=== PATIENT | male | born 1960 | race Caucasian/White ===

== ENCOUNTER 2021-06-19 02:42 | Inpatient (IN) | payer OTHER ==
[~2021-06-19] VITALS: Ht 180.3 cm; Wt 92.1 kg
[2021-06-19 09:15] VITALS: BP 154/89
[2021-06-19 10:27] VITALS: BP 149/85
[2021-06-19] MEDS ORDERED: PLEASE ENTER HEIGHT AND WEIGHT MC SCH (10:30)
[2021-06-19] MEDS: HEPARIN 25,000 UNITS/250ML PMX 250 ML IV PRN (11:03)
[2021-06-19] MEDS ORDERED: ONDANSETRON 2MG/ML, 2ML IVPush PRN (12:00)
[2021-06-19] MEDS ORDERED: BISACODYL 10 MG SUPP PR PRN (12:00)
[2021-06-19] MEDS ORDERED: hydrALAzine 20 MG/ML, 1ML IVPush PRN (12:00)
[2021-06-19] MEDS ORDERED: ONDANSETRON ODT 4 MG PO PRN (12:00)
[2021-06-19] MEDS ORDERED: POLYETHYLENE GLYCOL 17 GM PACKET PO PRN (12:00)
[2021-06-19] MEDS ORDERED: morphine SULFATE 10 MG/ML, 1ML IVPush PRN (12:00)
[2021-06-19] MEDS ORDERED: OXYcodone IR 5MG TABLET PO PRN (12:00)
[2021-06-19] MEDS ORDERED: DOCUSATE 100 MG CAPSULE PO PRN (12:00)
[2021-06-19] MEDS ORDERED: PROMETHAZINE 25 MG/ML, 1ML IM PRN (12:00)
[2021-06-19] MEDS ORDERED: ACETAMINOPHEN 325 MG TABLET PO PRN (12:00)
[2021-06-19 12:34] VITALS: BP 152/84
[2021-06-19] MEDS: HEPARIN 5,000 UNITS/ML, 1ML IV PRN (17:53)
[2021-06-19] MEDS: AMPICILLIN/SULBACTAM 3 GM in SODIUM CHLORIDE 0.9% 100 ML IV SCH (18:26)
[2021-06-19 20:05] VITALS: BP 153/80
[2021-06-20] MEDS: AMPICILLIN/SULBACTAM 3 GM in SODIUM CHLORIDE 0.9% 100 ML IV SCH ×4 (00:09→18:32)
[2021-06-20] MEDS: HEPARIN 5,000 UNITS/ML, 1ML IV PRN ×2 (00:41→08:25)
[2021-06-20 03:28] VITALS: BP 147/88
[2021-06-20] MEDS: HEPARIN 25,000 UNITS/250ML PMX 250 ML IV PRN (07:14)
[2021-06-20 07:33] LABS: BASOPHILS % (AUTO) 1 % (0-1); EOSINOPHILS % (AUTO) 4 % (1-7); LYMPHOCYTES % (AUTO) 25 % (22-44); MEAN CORPUSCULAR HEMOGLOBIN 28.1 pg (27.5-34.5); MEAN CORPUSCULAR HGB CONC 34.3 g/dL (33.2-36.2); MEAN PLATELET VOLUME 7.9 fL (7.4-10.4); MONOCYTES % (AUTO) 8 % (2-9); NEUTROPHILS % (AUTO) 63 % (42-75); PLATELET COUNT 178 x10^3/uL (130-400); RED CELL DISTRIBUTION WIDTH 13.9 % (9.4-14.8)
[2021-06-20 07:35] LABS: ALBUMIN 2.3 g/dL (3.4-5.0); ANION GAP 5 mmol/L (5-15); CALCIUM 7.8 mg/dL (8.5-10.1); CHLORIDE 108 mmol/L (98-107)
[2021-06-20 07:44] LABS: ALANINE AMINOTRANSFERASE 22 U/L (12-78); ALKALINE PHOSPHATASE 94 U/L (45-117); BILIRUBIN,TOTAL 0.7 mg/dL (0.2-1.0); CHOL/HDL RATIO 4.6; CHOLESTEROL, TOTAL 219 mg/dL (140-239); CREATININE 0.69 mg/dL (0.7-1.3); HDL CHOL % 22 % (26-37); HDL CHOLESTEROL (DIRECT) 48 mg/dL (40-60); LDL CHOLESTEROL,CALCULATED 142 mg/dL (54-169); TOTAL PROTEIN 6.3 g/dL (6.4-8.2); TRIGLYCERIDES 143 mg/dL (50-200); VLDL CHOLESTEROL 29 mg/dL (0-25)
[2021-06-20 08:41] VITALS: BP 137/86
[2021-06-20] MEDS ORDERED: AMOX1TAB64 PO (11:38)
[2021-06-20] MEDS ORDERED: OXYC1TAB14 PO (11:38)
[2021-06-20] MEDS ORDERED: APIX5TAB PO ×3 (11:38→12:04)
[2021-06-20] MEDS ORDERED: METF500T17 PO (11:40)
[2021-06-20 13:11] VITALS: BP 155/84
== END 2021-06-20 18:50 | disposition home or self-care (01) | DRG 300 ==
LOC: 5SO 09:20
PROVIDERS: ADMIT Internal Medicine; ATTEND Internal Medicine
DX: I82.402 Acute embolism and thrombosis of unspecified deep veins of left lower extremity (principal); L03.116 Cellulitis of left lower limb; E11.9 Type 2 diabetes mellitus without complications; E66.9 Obesity, unspecified; E88.09 Other disorders of plasma-protein metabolism, not elsewhere classified; Z68.28 Body mass index [BMI] 28.0-28.9, adult; Z80.9 Family history of malignant neoplasm, unspecified; Z87.891 Personal history of nicotine dependence
CPT/HCPCS: 36415; 80053; 80061; 83036; 83735; 84100; 84443; 85025; 85520; 93306; G0378; J0295; J1644